=== PATIENT | male | born 1990 | race Caucasian/White ===

== ENCOUNTER → 2023-02-22 09:37 | Outpatient (CLI) | payer BC, SELFPAY ==
--- NOTE | 2023-02-22 10:05 | XR_ITS ---
FINAL REPORT CLINICAL HISTORY: chest tightness, family hx of heart disease, high bp, right sided chest pain COMPARISON: None FINDINGS: Two views of the chest were obtained. The heart size and pulmonary vascularity are within normal limits. The mediastinum is normal. No acute pulmonary abnormality is identified. There is no pneumothorax. The bony thorax is intact. IMPRESSION: No active cardiopulmonary disease. Reviewed, Interpreted and Dictated by Fco Dominguez III, MD Transcribed by Unique Chávez Authenticated and [facility]
[2023-02-22 10:32] LABS: Basophils # 0.1 K/mm3 (0-0.2); Basophils % 0.9 % (0.1-2.0); Eosinophils # 0.2 K/mm3 (0.0-0.4); Eosinophils % 3.3 % (0.1-12.0); Hematocrit 46.2 % (42.0-52.0); Hemoglobin 15.3 g/dL (14.1-18.0); Lymphocytes # 2.1 K/mm3 (0.7-4.5); Mean Corpuscular Hemoglobin 28.9 pg (27.0-31.2); Mean Corpuscular Volume 87.6 fl (80-94); Mean Platelet Volume 7.2 fl (7.4-10.4); Monocytes # 0.4 K/mm3 (0.1-1.0); Monocytes % 6.7 % (1.7-9.3); Neutrophils # 3.3 K/mm3 (1.8-7.8); Neutrophils % 54.2 % (37.0-80.0); Platelet Count 254 K/mm3 (142-424); Red Blood Count 5.28 M/mm3 (4.60-6.20); Red Cell Distribution Width 13.2 % (11.5-17.5)
--- NOTE | 2023-02-22 10:39 | ECG_ITS ---
APPROVED REPORT Exam: Resting ECG HR:56 bpm ECG Measurements Heart Rate 56 AXES MO 137 P -8 QRSd 98 QRS 6 QT 366 T 16 QTc 358 Conclusion SINUS BRADYCARDIA WITH SINUS ARRHYTHMIA BORDERLINE ECG UNCONFIRMED REPORT Electronically signed by : Jose Miguel Thomas MD 02/22/2023 19:37:33
[2023-02-22 11:23] LABS: Creatinine,Urine Random 96 mg/dL (Not Estab.); Microalbumin < 6.000 mg/L (0-16.7)
[2023-02-22 12:16] LABS: Hemoglobin A1C 5.7 % (4.0-6.0)
[2023-02-22 16:50] LABS: Alanine Aminotransferase 45 U/L (12-78); Albumin Level 4.7 g/dl (3.5-5.0); Albumin/Globulin Ratio 1.6 (1.1-1.8); Alkaline Phosphatase 59 U/L (38-126); Anion Gap 15.1 mEq/L (5-15); Aspartate Amino Transferase 32 U/L (17-59); Bilirubin,Total 0.8 mg/dl (0.2-1.3); Blood Urea Nitrogen 11 mg/dl (9-20); Calcium 9.6 mg/dl (8.4-10.2); Carbon Dioxide 26 mmol/L (22.0-30.0); Chloride 106 mmol/L (98-107); Chol/HDL Ratio 7.4 (1-3.5); Cholesterol 260 mg/dl (140-200); Estimated Glomerular Filt Rate 97 ml/min (>60); GFR (African American) 117 ML/MIN (>60); Glucose 98 mg/dl (74-100); HDL Cholesterol 35 mg/dl (40-60); Potassium 5.1 mmoL/L (3.5-5.1); Sodium 142 mmol/L (136-145); Total Protein,Serum 7.7 g/dl (6.3-8.2); Triglycerides 203 mg/dl (30-150); VLDL Cholesterol 41 mg/dL (0-40)
[2023-02-22 17:01] LABS: Direct LDL Cholesterol 170.23 mg/dL (100-129)
[2023-02-22 17:19] LABS: Thyroid Stimulating Hormone 1.52 uIU/mL (0.465-4.68)
== END ==
LOC: LAB 09:38
PROVIDERS: PCP Nurse Practitioner; Visit Provider Nurse Practitioner
DX: R07.89 Other chest pain (principal); I10 Essential (primary) hypertension; E78.5 Hyperlipidemia, unspecified; Z13.1 Encounter for screening for diabetes mellitus; Z79.899 Other long term (current) drug therapy
CPT/HCPCS: 36415; 71046; 80053; 80061; 82043; 82570; 83036; 84443; 85025; 93005

== ENCOUNTER → 2023-03-08 10:41 | Outpatient (CLI) | payer BC, SELFPAY ==
[2023-03-08] VITALS (8 sets, daily range): BP systolic 104–131; BP diastolic 63–90; PULSE 53–75; RESP 16–18; TEMP 36.1–36.5; O2SAT 96–99
--- NOTE | 2023-03-08 10:46 | CT_ITS ---
APPROVED REPORT [employer]: CLINICAL INDICATION Chest Pain TECHNIQUE Image Acquisition: A 128 slice MDCT scanner ([employer] View) was used for data acquisition. A noncontrast coronary calcium scan was performed. A CT attenuation threshold of 130 Hounsfield units (HU) was used for the detection of calcium in contiguous voxels of 1 sq mm in area to be counted as individual lesions. Bolus tracking in the ascending aorta with a threshold of 180 HU was performed. Immediately afterwards, ECG synchronized cardiac CT was then performed from the cardiac base to apex using retrospective gating with ECG tube current modulation. A total of 85 mL of Isovue 370 mg/mL contrast medium was administered at 5 mL/sec followed by a saline flush using a biphasic injection protocol. A tube voltage of 120 KVp was used. The patient received the following medications prior to the cardiac CT. 100 mg of oral metoprolol 5 mg of intravenous metoprolol 0.8 mg of sublingual nitroglycerin The average heart rate at the time of acquisition was 53 bpm and regular. Image Reconstruction Transaxial images were reconstructed at 0.67 mm slide thickness. Data was reviewed interactively on an advanced workstation capable of 2 and 3-dimensional displays in all conventional reconstruction formats, including multiplanar reformations, maximum intensity projections, curved multiplanar reformations, and volume rendered reconstructions. When applicable, selected routine images describing the relevant coronary anatomy and pathology were saved and sent to PACS. Complications None Technical Quality Overall image quality was good. Coronary artery opacification was adequate. Total DLP (Dose-Length Product) is 1285.1 mGy-cm. The reported value represents the total of one or more individual components during the CT acquisition of this date and at this time, and as such, the same value may appear in more than one CT report depending on the interpreting/reporting physicians. COMPARISON None FINDINGS CT Coronary Calcium Scoring LMA (Left Main Artery) = 0 LAD (Left Anterior Descending) = 0 LCX (Left Coronary Circumflex) = 0 RCA (Right Coronary Artery) = 0 Total Calcium Score = 0 using the AJ-130 method. The interpretation of the calcium heart score is based on the following continuum*: 0 = no calcified plaque detected (risk of coronary artery disease is very low ??? less than 5%) 1-10 = calcium detected in extremely minimal levels (risk of coronary diseases is still low ??? less than 10%) 11-100 = mild levels of plaque detected with certainty (mild or minimal narrowing of heart arteries is likely) 101-400 = definite,at least moderate levels of plaque detected (relatively high risk of a heart attack within 3-5 years) >401-999 = extensive levels of plaque detected (high risk of heart attack, high levels of vascular disease are present, high likelihood of at least one significant coronary narrowing) *The calcium heart score quantifies the burden of coronary calcification/plaque in the coronary arteries. The calcium heart score is not able to evaluate the presence or burden of non-calcified (i.e. soft) plaque. There is no identifiable calcification in the aortic valve, mitral annulus or mitral valve, pericardium, or myocardium. Coronary CT Angiography Coronaries have normal origin and proximal course. The coronary arterial system is right dominant. Note: Stenosis is reported as maximum percentage diameter stenosis. Stenosis grading is reported using the following scheme: Quantitative Stenosis Grading: Left Main (LM): The left main originates normally from the left sinus of Valsalva. The LM trifurcates into the left anterior descending artery, ramus intermedius, and left c
== END ==
LOC: RAD 10:42
PROVIDERS: PCP Nurse Practitioner; Visit Provider Internal Medicine
DX: I10 Essential (primary) hypertension (principal); R07.89 Other chest pain; E78.5 Hyperlipidemia, unspecified
CPT/HCPCS: 75574; Q9967

== ENCOUNTER → 2023-03-12 08:51 | Outpatient (CLI) | payer BC, SELFPAY ==
--- NOTE | 2023-03-12 08:55 | CA_ITS ---
APPROVED REPORT EXAM: Comprehensive 2D, Doppler, and color-flow Echocardiogram Sort Supervisor: Tania Hunt, RCS, RVS Ht: 5 ft 8 in Wt: 227lbs BSA: 2.16 BP: 135/89 mmHg Indications: CP, HTN, HLD, Family hx HD 2D Dimensions Aortic Root 3.33 cm M: 3.1 - 3.7 LA Volume 53.40 mL Left Atrium 3.41 cm M: 3.0 - 4.0 LA Volume Index 24.72 mL/m2 (M/F) 16-34 LVOT 2.14 cm (M/F) 1.5-2.5 M-Mode Dimensions RVDd 2.82 cm (0.9-2.6) LA Diam 4.24 cm (1.9-4.0) LVDd 4.19 cm (3.5-5.7) Ao Diam 3.40 cm (2.0-3.7) LVDs 3.02 cm (3.5-5.7) IVSd 0.97 cm (0.6-1.1) PWd 0.91 cm (0.6-1.1) EF (Teich) 54.40% EPSs 0.67 cm FS 27.90% EDV (Teich) 78.10 mL TAPSE 2.43 (<1.7) ESV (Teich) 35.60 mL LV Diastology E Decel Time 197.00 (160-240 msec) E/A Ratio 1.11 MED E' 9.30 (< 7 cm/sec) MED A' 9.80 cm/s E'/MED E' Ratio 7.38 (>14) LAT E' 9.80 (<10 cm/sec) LAT A' 11.00 cm/s E/LAT E' Ratio 7.00 (>14) Aortic Valve LVOT Max 108.00 (70-110 cm/s) LVOT VTI 21.41 cm AoV Peak Pedro. 117.00 (50-130 cm/s) AO Peak GR. 5.50 mmHg AO Mean GR. 2.80 (<5 mmHg) AO VTI 23.76 (18-25 cm) PATRICIA (VTI) 3.24 (2.5-4.5 cm2) Mitral Valve MV A Velocity 62.00 (40-130 cm/s) E/A Ratio 1.11 MV Decel. Time 197.00 (160-240 ms) Pulmonary Valve OR End VMAX 156.00 cm/s Left Ventricle The left ventricle is normal size. The left ventricular systolic function is normal. The left ventricular ejection fraction is within the normal range. There is normal left ventricular wall thickness. There is normal LV segmental wall motion. The left ventricular diastolic function is normal. LVEF is 55%. Right Ventricle The right ventricle is normal size. The right ventricular systolic function is normal. Atria The left atrium size is normal. The right atrium size is normal. There is no Doppler evidence of interatrial shunt. Aortic Valve The aortic valve is normal in structure. The aortic valve is trileaflet. There is no aortic valvular stenosis. Trace aortic regurgitation. Mitral Valve The mitral valve is normal in structure. No evidence of mitral valve stenosis. Trace mitral regurgitation. Tricuspid Valve The tricuspid valve leaflets are thin and pliable. Trace tricuspid regurgitation. There is insufficient TR jet to estimate RVSP. Pulmonic Valve The pulmonary valve is normal in structure. Mild pulmonic regurgitation. Great Vessels The aortic root is normal in size. The ascending aorta is normal in size. IVC is normal in size and collapses >50% with inspiration. Pericardium There is no pericardial effusion. Other Information Study Quality: Fair Conclusion Normal biventricular systolic function. No significant valvular stenosis or regurgitation. Electronically signed by : Aure Moore MD 03/14/2023 21:31:26
== END ==
LOC: RT 08:52
PROVIDERS: PCP Nurse Practitioner; Visit Provider Internal Medicine
DX: R07.89 Other chest pain (principal); I10 Essential (primary) hypertension; E78.5 Hyperlipidemia, unspecified
CPT/HCPCS: 93306

== ENCOUNTER 2023-06-16 19:28 | Outpatient (CLI) | payer BC, SELFPAY ==
[2023-06-16 18:33] LABS: Alanine Aminotransferase 47 U/L (12-78); Albumin Level 4.8 g/dl (3.5-5.0); Albumin/Globulin Ratio 1.8 (1.1-1.8); Alkaline Phosphatase 72 U/L (38-126); Anion Gap 14.1 mEq/L (5-15); Aspartate Amino Transferase 40 U/L (17-59); Bilirubin,Total 1.6 mg/dl (0.2-1.3); Blood Urea Nitrogen 10 mg/dl (9-20); Calcium 9.8 mg/dl (8.4-10.2); Carbon Dioxide 28 mmol/L (22.0-30.0); Chloride 103 mmol/L (98-107); Chol/HDL Ratio 4.6 (1-3.5); Cholesterol 174 mg/dl (140-200); Estimated Glomerular Filt Rate 97 ml/min (>60); GFR (African American) 117 ML/MIN (>60); Globulin 2.6 g/dL (1.3-3.2); Glucose 91 mg/dl (74-100); HDL Cholesterol 38 mg/dl (40-60); Potassium 4.1 mmoL/L (3.5-5.1); Sodium 141 mmol/L (136-145); Total Protein,Serum 7.4 g/dl (6.3-8.2); Triglycerides 143 mg/dl (30-150); VLDL Cholesterol 29 mg/dL (0-40)
[2023-06-16 18:45] LABS: Direct LDL Cholesterol 105.81 mg/dL (100-129)
== END 2023-06-16 23:59 ==
LOC: LAB.DROPOF 19:28
PROVIDERS: PCP Nurse Practitioner; Visit Provider Nurse Practitioner
DX: E78.5 Hyperlipidemia, unspecified (principal); I10 Essential (primary) hypertension
CPT/HCPCS: 80053; 80061

== ENCOUNTER 2024-02-25 18:46 | Outpatient (CLI) | payer BC, SELFPAY ==
[2024-02-25 19:40] LABS: Basophils # 0.2 K/mm3 (0-0.2); Basophils % 2.6 % (0.1-2.0); Eosinophils # 0.3 K/mm3 (0.0-0.4); Hematocrit 46.9 % (42.0-52.0); Hemoglobin 15.1 g/dL (14.1-18.0); Lymphocytes # 1.8 K/mm3 (0.7-4.5); Lymphocytes % 26.5 % (10-50); Mean Corpuscular HGB Conc 32.2 g/dL (31.8-35.4); Mean Corpuscular Hemoglobin 28.9 pg (27.0-31.2); Mean Corpuscular Volume 89.7 fl (80-94); Mean Platelet Volume 7.9 fl (7.4-10.4); Monocytes # 0.5 K/mm3 (0.1-1.0); Monocytes % 7.5 % (1.7-9.3); Neutrophils % 59.4 % (37.0-80.0); Platelet Count 237 K/mm3 (142-424); Red Blood Count 5.23 M/mm3 (4.60-6.20); Red Cell Distribution Width 13.6 % (11.5-17.5); White Blood Count 6.7 K/mm3 (4.8-10.8)
[2024-02-25 20:14] LABS: Albumin Level 4.6 g/dl (3.5-5.0); Chloride 107 mmol/L (98-107); Sodium 142 mmol/L (136-145)
[2024-02-25 20:15] LABS: Potassium 4.9 mmoL/L (3.5-5.1)
[2024-02-25 20:17] LABS: Alanine Aminotransferase 70 U/L (12-78); Albumin/Globulin Ratio 1.7 (1.1-1.8); Alkaline Phosphatase 58 U/L (38-126); Anion Gap 10.9 mEq/L (5-15); Aspartate Amino Transferase 44 U/L (17-59); Bilirubin,Total 1.9 mg/dl (0.2-1.3); Blood Urea Nitrogen 10 mg/dl (9-20); Carbon Dioxide 29 mmol/L (22.0-30.0); Cholesterol 165 mg/dl (140-200); Estimated Glomerular Filt Rate 96 ml/min (>60); GFR (African American) 116 ML/MIN (>60); Globulin 2.7 g/dL (1.3-3.2); Total Protein,Serum 7.3 g/dl (6.3-8.2); Triglycerides 228 mg/dl (30-150); VLDL Cholesterol 46 mg/dL (0-40)
[2024-02-25 20:18] LABS: Calcium 9.9 mg/dl (8.4-10.2); Chol/HDL Ratio 4.3 (1-3.5); Glucose 99 mg/dl (74-100); HDL Cholesterol 38 mg/dl (40-60)
[2024-02-25 20:23] LABS: Creatinine,Urine Random 195 mg/dL (Not Estab.)
[2024-02-25 20:25] LABS: Microalbumin/Creatinine Ratio 3.4
[2024-02-25 20:51] LABS: Direct LDL Cholesterol 90.67 mg/dL (100-129); Thyroid Stimulating Hormone 1.18 uIU/mL (0.465-4.68)
[2024-02-25 21:28] LABS: Vitamin B12 286 pg/mL (239-931)
== END 2024-02-25 23:59 | disposition home or self-care (01) ==
LOC: LAB.DROPOF 18:47
PROVIDERS: PCP Nurse Practitioner; Visit Provider Nurse Practitioner
DX: I10 Essential (primary) hypertension (principal); E78.5 Hyperlipidemia, unspecified; F39 Unspecified mood [affective] disorder
CPT/HCPCS: 80050; 80053; 80061; 82043; 82570; 82607; 83036; 84443; 85025